=== PATIENT | male | born 1960 | race Two or more races ===

== ENCOUNTER 2020-10-30 19:04 | Emergency (ER) | payer OTHER ==
[~2020-10-30] VITALS: Ht 180.3 cm; Wt 94.3 kg
[2020-10-30] MEDS ORDERED: FLAGYL500MG (19:21)
[2020-10-30] MEDS ORDERED: CIPRO500 MG (19:22)
[2020-10-30] MEDS ORDERED: [UNRECOGNIZED DRUG - OTHER] (19:22)
[2020-10-31] MEDS ORDERED: LEVSIN/SL0.125 MG SL (06:55)
== END 2020-10-31 08:29 | disposition home or self-care (01) ==
LOC: ER 19:04
DX: K57.90 Diverticulosis of intestine, part unspecified, without perforation or abscess without bleeding (principal); R10.32 Left lower quadrant pain; Z03.818 Encounter for observation for suspected exposure to other biological agents ruled out

== ENCOUNTER 2020-12-28 06:51 | Outpatient (CLI) | payer OTHER ==
[~2020-12-28 06:51] MED LIST: CIPRO500 MG; FLAGYL500MG; LEVSIN/SL0.125 MG SL; [UNRECOGNIZED DRUG - OTHER]
== END 2020-12-28 07:03 | disposition home or self-care (01) ==
LOC: RAD 06:51
PROVIDERS: ATTEND Colon & Rectal Surgery
DX: K57.32 Diverticulitis of large intestine without perforation or abscess without bleeding (principal); K92.1 Melena

== ENCOUNTER 2021-01-04 11:45 | Inpatient (IN) | payer OTHER ==
[~2021-01-04] VITALS: Ht 180.3 cm; Wt 99.8 kg
[2021-01-04] MEDS ORDERED: TAMS0.4C PO (15:21)
== END 2021-01-16 18:47 | disposition expired | DRG 329 ==
LOC: SURH 01-09 07:00 → O/R 01-09 09:49 → SURH 01-09 11:45 → SURG 01-09 16:32
PROVIDERS: ADMIT Colon & Rectal Surgery; ATTEND Colon & Rectal Surgery
PROC: 0DJD8ZZ Inspection of Lower Intestinal Tract, Via Natural or Artificial Opening Endoscopic (ICD-10-PCS; 2021-01-09)
PROC: 0DBN4ZZ Excision of Sigmoid Colon, Percutaneous Endoscopic Approach (ICD-10-PCS; principal; 2021-01-09 07:00)
PROC: 3E0F7SF Introduction of Other Gas into Respiratory Tract, Via Natural or Artificial Opening (ICD-10-PCS; 2021-01-10)
PROC: 02HV33Z Insertion of Infusion Device into Superior Vena Cava, Percutaneous Approach (ICD-10-PCS; 2021-01-13)
PROC: 4A033R1 Measurement of Arterial Saturation, Peripheral, Percutaneous Approach (ICD-10-PCS; 2021-01-16)
PROC: 0BH17EZ Insertion of Endotracheal Airway into Trachea, Via Natural or Artificial Opening (ICD-10-PCS; 2021-01-16)
PROC: 5A1935Z Respiratory Ventilation, Less than 24 Consecutive Hours (ICD-10-PCS; 2021-01-16)
DX: D12.7 Benign neoplasm of rectosigmoid junction (principal); G93.41 Metabolic encephalopathy; R65.21 Severe sepsis with septic shock; K65.1 Peritoneal abscess; K57.32 Diverticulitis of large intestine without perforation or abscess without bleeding; E87.2 Acidosis; T81.44XA Sepsis following a procedure, initial encounter; K57.30 Diverticulosis of large intestine without perforation or abscess without bleeding; D64.9 Anemia, unspecified; G47.39 Other sleep apnea; F10.21 Alcohol dependence, in remission